=== PATIENT | female | born 1930 | race Caucasian/White ===

== ENCOUNTER 2017-04-22 15:09 | Inpatient (IN) ==
[2017-04-24] MEDS ORDERED: Nitroglycerin 0.4 MG TAB.SUBL SL PRN (22:42)
[2017-04-25 05:16] LABS: Basophils % 0.2 %; Eosinophils % 0.3 %; Hematocrit 23.9 % (35.3-44.9); Hemoglobin 7.8 g/dL (11.5-15.4); Immature Granulocytes % 1.4 % (0-4); Lymphocytes # 0.5 K/mcL (0.6-4.6); Lymphocytes % 7.5 %; Mean Corpuscular HGB Conc 32.6 g/dL (31.6-35.5); Mean Corpuscular Hemoglobin 30.6 pg (28.0-33.3); Mean Corpuscular Volume 93.7 fL (83.0-100.0); Mean Platelet Volume 9.2 fL (9.4-12.4); Monocytes # 0.6 K/mcL (0.0-1.3); Monocytes % 9.2 %; Neutrophils # 5.3 K/mcL (1.6-8.9); Platelet Count 160 K/mcL (140-400); Red Blood Count 2.55 M/mcL (3.82-4.97); Red Cell Distribution Width 17.3 % (11.5-14.5); Segmented Neutrophils % 81.4 %
[2017-04-25 05:24] LABS: INR 1.4
[2017-04-25 05:26] LABS: Activated Partial Thrombo Time 25.4 Seconds (26.0-36.0)
[2017-04-25 05:32] LABS: Platelet Estimate Normal (Normal)
[2017-04-25 05:33] LABS: BUN/Creatinine Ratio 20 (6-26); Blood Urea Nitrogen 18 mg/dL (7-20); Calcium 11.1 mg/dL (8.6-10.8); Carbon Dioxide 28 mEq/L (19-29); Chloride 96 mEq/L (98-109); Glucose 87 mg/dL (70-99); Osmolality,Calculated 265 (280-300); Potassium 3.5 mEq/L (3.5-4.5); Sodium 127 mEq/L (136-145); eGFR For African Americans > 60 (> 60); eGFR For Non-African Americans 59 (> 60)
[2017-04-25] MEDS: Iron Polysaccharide Complex 150 MG CAPSULE PO SCH (07:57)
[2017-04-25] MEDS: Diltiazem CD (24hr) 120 MG CAPSULE PO SCH (07:58)
[2017-04-25] MEDS: CALCIUM VITAMIN D PO SCH ×2 (07:59→19:55)
--- NOTE | 2017-04-25 17:25 | Internal Med History&Physical ---
Date of Encounter: 04/25/17 Time of Encounter: 17:23 Assessment and Plan (1) Physical deconditioning Current visit: Yes Status: Acute Patient's here for PT OT TR. (2) Bladder CA in situ Current visit: Yes Status: Acute She had fairly recent surgery for removal of cancerous tumor in the bladder. Apparently when she had some blood in the urine he went back the cystoscope and found the bubble of an area. But her lighting specialist declined to permit surgery at this time. (3) Atrial fibrillation Current visit: Yes Status: Acute She is not running away with the rate but she does have irregular heartbeat at rest Qualifiers: Qualified Code(s): I48.91 - Unspecified atrial fibrillation (4) HTN (hypertension) Current visit: Yes Status: Acute O follow the blood pressure. Internal Medicine - H&P: HPI Chief complaint: Patient has undergone a number of medical problems recently. She was diagn Admitted From: Hospital to Hospital Transfer Plans for Post Hospital Care: Home History of present illness: Ms. Toth is a 86 year old female Past Med Surg Social Fam HX - Past Medical History Medical history: atrial fibrillation, cancer, GERD, hyperlipidemia, hypertension - Past Surgical History Surgical History: appendectomy, cancer surgery, cataract - Social History Smoking Status: Never smoker Smokeless Tobacco Status: No Alcohol use: none Drug use: none - Family History Son Living Status: Hx Family Cardiac Disorders: Yes Hx Family Cancer: Yes Internal Medicine - H&P: Meds 3 Allergy/AdvReac Type Severity Reaction Status Date / Time Sulfa (Sulfonamide AdvReac Rash Verified 04/24/17 22:29 Antibiotics) All Systems PM: A 10-system review of systems was performed and is negative for pertinent findings except as documented above in the HPI. - Constitutional Constitutional: anorexia, fatigue, no chills, no excessive sweating, no fever(s) , no falls, no lethargy, no malaise, no night sweats, no weakness, no weight gain, no weight loss - EENT Eyes: blurry vision, change in vision, decreased night vision, no diplopia, no discharge, no dry eye, no floaters, no irritation, no itchy eyes, no loss of peripheral vision, no loss of vision, no pain, no photophobia, no seeing flashes , no spots in vision, no tunnel vision, no other visual disturbances Ears: decreased hearing, ear discharge, ear pain, tinnitus Nose, mouth and throat: as per HPI, no bleeding gums, no change in voice, no dental pain, no dry mouth, no dysphagia, no epistaxis, no facial pain, no hoarseness, no lip swelling, no mouth lesions, no mouth pain, no nasal congestion, no nasal discharge, no nasal obstruction, no neck mass, no neck pain , no nose pain, no odynophagia, no post-nasal drip, no sinus pain, no sinus pressure, no sore throat, no throat swelling, no tongue swelling - Cardiovascular Cardiovascular ROS IM: irregular heart rhythm, no chest pain, no claudication, no diaphoresis, no dyspnea, no dyspnea on exertion, no edema, no lightheadedness , no orthopnea, no palpitations, no paroxysmal nocturnal dyspnea, no syncope - Respiratory Respiratory: no cough, no dyspnea, no hemoptysis, no dyspnea on exertion, no wheezing, no snoring, no stridor, no pain on inspiration, no chest congestion, no excessive phlegm production, no change in phlegm color, no pain with cough - Gastrointestinal Gastrointestinal: no abdominal pain, no belching, no bloating, no change in bowel habits, no change in stool character, no coffee ground emesis, no constipation, no cramping, no diarrhea, no dyspepsia, no dysphagia, no early satiety, no excessive flatus, no fecal incontinence, no heartburn, no hematemesis, no hematochezia, no loose stools, no melena, no nausea, no odynophagia, no tenesmus, no vomiting - Genitourinary Genitourinary: other, no amenorrhea, no breast change in shape, no breast mass, no breast pain, no breast skin changes, no breast swelling, no change in libido , no change in urinary stream, no difficulty conceiving, no difficulty urinating , no difficulty voiding, no dysmenorrhea, no dyspareunia, no dysuria, no flank pain, no genital lesions, no genital pruritis (Not applicable), no hematuria, no hot flashes, no light periods, no menorrhagia, no metrorrhagia, no nipple discharge, no nocturia, no pelvic pain, no post void dribbling, no prolapse symptoms, no sexual dysfunction, no urinary frequency, no urinary incontinence, no urinary urgency, no vaginal discharge, no vaginal dryness, no vaginal odor, no vaginal pruritis Additional comments: H&N bladder CA Additional comments: Not applicable - Musculoskeletal Musculoskeletal ROS IM: no arthralgias, no atrophy, no joint swelling, no limited range of motion, no muscle cramps, no myalgias, no neck pain, no numbness, no stiffness, no tingling - Integumentary Integumentary IM: no pruritus, no unusual bruising - Neurological Neurological ROS: no abnormal gait, no abnormal hearing, no abnormal movements, no abnormal speech, no behavioral changes, no burning sensations, no confusion, no convulsions, no disequilibrium, no dizziness, no focal weakness, no frequent falls, no headache(s), no lack of coordination, no loss of vision, no memory loss, no numbness, no paresthesias, no radicular pain, no restless legs, no tingling, no tremor(s), no vertigo, no weakness, no other visual disturbances - Psychiatric Psychiatric: no abnormal sleep pattern, no anhedonia, no anxiety, no auditory hallucinations, no confusion, no depression, no difficulty concentrating, no hallucinations, no homicidal ideation, no mood swings, no panic attacks, no paranoia, no suicidal ideation, no visual hallucinations - Endocrine Endocrine IM: no cold intolerance, no deeping of the voice, no excessive sweating, no fatigue, no flushing, no heat intolerance, no polydipsia, no polyphagia, no polyuria - Hematologic/Lymphatic Hematologic/Lymphatic: other, no easy bruising, no lymphadenopathy - Constitutional Vitals: Temp Pulse Resp BP Pulse Ox 98.0 F 81 16 110/72 94 04/25/17 12:00 04/25/17 12:00 04/25/17 12:00 04/25/17 12:04/25/17 07:33 General appearance: Present: cooperative, A&O X 2, pleasant, answers questions appropriately - Head Head exam: Present: atraumatic, normal inspection, normocephalic - Neck Neck exam general surgery: Present: supple, trachea midline. Absent: lymphadenopathy - Respiratory Respiratory exam: Present: CTAB. Absent: accessory muscle use, rales, rhonchi, wheezes - Cardiovascular Cardiovascular exam: Present: irregular rhythm, RRR, +S1, +S2. Absent: diastolic murmur, gallop, rubs, systolic murmur - GI/Abdominal GI/Abdominal exam: Present: normal bowel sounds, soft, no peritoneal signs. Absent: distended, tenderness Internal Med - H&P Results - Labs CBC & Chem 7: 04/25/17 05:05 04/25/17 05:05 Labs: Short CBC 04/25/17 Range/Units 05:05 WBC 6.5 (4.3-11.1) K/mcL Hgb 7.8 L (11.5-15.4) g/dL Hct 23.9 L (35.3-44.9) % Plt Count 160 (140-400) K/mcL Neutrophils # 5.3 (1.6-8.9) K/mcL BMP 04/25/17 05:05 Sodium 127 L Potassium 3.5 Chloride 96 L Carbon Dioxide 28 BUN 18 Creatinine 0.91 Glucose 87 Calcium 11.1 H Hemoglobin is 7.8 and we will type and cross and give her 1 unit and follow - VTE Documentation of Mechanical Device: Graduated compression elastic hosiery
[2017-04-25] MEDS ORDERED: 0.9 % Sodium Chloride 250 ML ONE (22:08)
[2017-04-26 05:55] LABS: Hematocrit 26.1 % (35.3-44.9); Hemoglobin 8.9 g/dL (11.5-15.4)
[2017-04-26] MEDS: CALCIUM VITAMIN D PO SCH ×2 (10:04→21:47)
[2017-04-26] MEDS: Diltiazem CD (24hr) 120 MG CAPSULE PO SCH (10:04)
[2017-04-26] MEDS: Iron Polysaccharide Complex 150 MG CAPSULE PO SCH (10:04)
--- NOTE | 2017-04-26 13:28 | Internal Med Progress Note ---
Date of Encounter: 04/26/17 Time of Encounter: 13:23 - Assessment and plan (1) Depression Current Visit: Yes Status: Acute Assessment and plan: -commplicated grief now active depression. Decreased sleep and decreased appetite - Not suicidal, but has passive thoughts - Appropriate for remron for now to increase sleep and appetite at low dose - She might benefit from zoloft at low dose in the comming future - Would anticipate that she would require longer than 4 wks to anticipate change in mood Qualifiers: Depression Type: major depressive disorder Major depression recurrence: single episode Active/Remission status: currently active Major depression episode severity: moderate Qualified Code(s): F32.1 - Major depressive disorder, single episode, moderate (2) Constipation Current Visit: Yes Status: Chronic Assessment and plan: - decreased intake, difficult to know if she is trully constipatied - hold off on stool sofetner due to their affect on appetite - Would restart if no BM in 2-3 days Qualifiers: Constipation type: slow transit constipation Qualified Code(s): K59.01 - Slow transit constipation (3) Hyponatremia Current Visit: Yes Status: Acute Assessment and plan: - unknown etiology, will start workup with TSH added to prior blood work - Might by associated with hypervolemic status in the setting of CHF, given strong history of A. fib - Last echo performed not in records, but cardiology suggested cath (4) Insomnia Current Visit: Yes Status: Acute Assessment and plan: - Mirtapine/Remron at low dose to help with sleep - Discussed with family to bring items from home - Discussed that we will attempt to hold off on vitals tell later in the day - Discussed to allow her to sleep uninturrupted tell 8:30am (5) Physical deconditioning Current Visit: Yes Status: Acute Assessment and plan: - PT/OT - Optimize Mood disorder and nutrition (6) Bladder CA in situ Current Visit: Yes Status: Acute Assessment and plan: - Continue to lose blood, but stable Hgb - No optimized for surgical intervention per her interventionist - To follow up out patient (7) Atrial fibrillation Current Visit: Yes Status: Chronic Assessment and plan: - Stable - Continue home medications Qualifiers: Atrial fibrillation type: persistent Qualified Code(s): I48.1 - Persistent atrial fibrillation (8) HTN (hypertension) Current Visit: Yes Status: Acute Assessment and plan: - Stable, continue home meds Qualifiers: Hypertension type: essential hypertension Qualified Code(s): I10 - Essential (primary) hypertension - Time Spent With Patient 25 - 35 minutes (Complete discussion about a new diagnosis of depression was carried today) - Subjective Interval history: Patient with family today. Eating lunch and has expressed decreased appetite. Family reports that she has been feeling this was for the past 2 months and has been losing weight. Reports of grief for the past 2 years now since the time she lost her brother. Sleep is affected as well as decreased appetite. NO prior history of depression diagnosed She also feel fatigued, and has been transfused 2 units. s/p AVM and bladder Ca She continue to have hematurea and was not optimized to undergo surgical evaluation of her bladder Her interventionist informed family that after the echo, she needs cath, but her anemia was contraindication - Constitutional Vitals: Temp Pulse Resp BP Pulse Ox 98.6 F 98 16 114/65 97 04/26/17 12:00 04/26/17 12:00 04/26/17 12:00 04/26/17 12:00 04/26/17 12:00 General appearance: Present: cooperative, A&O X 3, pleasant, answers questions appropriately - Head Head exam: Present: normal inspection - Neck Neck exam general surgery: Present: full ROM, normal inspection, trachea midline. Absent: lymphadenopathy, tenderness, nuchal rigidity - Expanded Neck Exam Neck exam: Absent: anterior neck swelling, midline deformity, thyroid mass - Respiratory Respiratory exam: Present: CTAB. Absent: accessory muscle use, chest wall tenderness, prolonged expiratory phase, rales, respiratory distress, rhonchi, wheezes, tachypnea - Cardiovascular Cardiovascular exam: Present: irregular rhythm, +S1, +S2, tachycardia. Absent: diastolic murmur, RRR, rubs, systolic murmur - GI/Abdominal GI/Abdominal exam: Present: soft. Absent: bruit, distended, firm, mass, rebound , rigid, tenderness - Extremities Exam Extremities exam: Present: normal inspection, pedal edema, warm. Absent: calf tenderness, joint swelling, tenderness - Expanded Upper Extremities Exam General: Present: normal inspection Shoulder exam: Present: full ROM, normal inspection Upper Arm exam: Present: normal inspection Elbow exam: Present: full ROM, normal inspection. Absent: tenderness - Expanded Lower Extremities Exam Hip exam: Present: full ROM Lower Leg exam: Present: full ROM, normal inspection, swelling. Absent: deformity, dislocation Ankle exam: Present: full ROM, swelling. Absent: tenderness Neuro vascular tendon exam: Absent: foot drop, motor deficit, pallor, pulse deficit, sensory deficit - Neurological Exam Neurological exam: Absent: no focal deficits, pronater drift, speech deficit - Expanded Neurological Exam Neurological exam expanded: Absent: ataxia, expressive aphasia, memory loss- recent event, memory loss-remote event, tremor Speech: Absent: anomia - Psychiatric Psychiatric exam: Present: depressed, flat affect Additional comments: Passive suicidal ideation, doesn't express suicide nor a plan Internal Medicine: Result - Labs CBC & Chem 7: 04/26/17 05:20 04/25/17 05:05 Labs: Short CBC 04/26/17 Range/Units 05:20 Hgb 8.9 L (11.5-15.4) g/dL Hct 26.1 L (35.3-44.9) % - ABG Interpretation ABG results: PT/INR, D-dimer PT 15.0 Seconds (9.4-12.1) H 04/25/17 05:05 - VTE Documentation of Mechanical Device: Graduated compression elastic hosiery Consult Discharge Plan - Plan Referrals: Fela Ramon MD [Primary Care Provider] -
[2017-04-26] MEDS ORDERED: Mirtazapine 15 MG TABLET PO SCH (21:00)
[2017-04-26] MEDS: Mirtazapine 15 MG TABLET PO SCH (21:45)
[2017-04-27] MEDS: CALCIUM VITAMIN D PO SCH ×2 (09:17→21:21)
[2017-04-27] MEDS: Diltiazem CD (24hr) 120 MG CAPSULE PO SCH (09:17)
--- NOTE | 2017-04-27 14:25 | Internal Med Progress Note ---
Date of Encounter: 04/27/17 Time of Encounter: 14:23 - Assessment and plan (1) Depression Current Visit: Yes Status: Acute Assessment and plan: -commplicated grief now active depression. Decreased sleep and decreased appetite - Not suicidal, but has passive thoughts - Appropriate for remron for now to increase sleep and appetite at low dose - She might benefit from zoloft at low dose in the coming future - Would anticipate that she would require longer than 4 wks to anticipate change in mood or going into partial remission Qualifiers: Depression Type: major depressive disorder Major depression recurrence: single episode Active/Remission status: currently active Major depression episode severity: moderate Qualified Code(s): F32.1 - Major depressive disorder, single episode, moderate (2) Constipation Current Visit: Yes Status: Chronic Assessment and plan: - decreased intake, difficult to know if she is trully constipatied - continue to hold off on stool softener due to their affect on appetite - Would restart if no BM in 2-3 days Qualifiers: Constipation type: slow transit constipation Qualified Code(s): K59.01 - Slow transit constipation (3) Hyponatremia Current Visit: Yes Status: Acute Assessment and plan: - unknown etiology - Pending TSH - Might by associated with hypervolemic status in the setting of CHF, given strong history of A. fib - Last echo performed not in records, but cardiology suggested cath to her at one point (4) Insomnia Current Visit: Yes Status: Acute Assessment and plan: - Mirtapine at low dose to help with sleep, it is more effective for those two issues at 7.5mg dose - Discussed with family to bring items from home - Discussed that we will attempt to hold off on vitals tell later in the day Qualifiers: Insomnia type: unspecified Qualified Code(s): G47.00 - Insomnia, unspecified (5) Physical deconditioning Current Visit: Yes Status: Acute Assessment and plan: - PT/OT - Optimize Mood disorder and nutrition (6) Bladder CA in situ Current Visit: Yes Status: Acute Assessment and plan: - Continue to lose blood, but stable Hgb - No optimized for surgical intervention per her risk assessor - To follow up out patient (7) Atrial fibrillation Current Visit: Yes Status: Chronic Assessment and plan: - Stable - Continue home medications Qualifiers: Atrial fibrillation type: persistent Qualified Code(s): I48.1 - Persistent atrial fibrillation (8) HTN (hypertension) Current Visit: Yes Status: Acute Assessment and plan: - Stable, continue home meds Qualifiers: Hypertension type: essential hypertension Qualified Code(s): I10 - Essential (primary) hypertension - Time Spent With Patient 25 - 35 minutes - Subjective Interval history: Patient laying in bed with family around. Still feels down and depressed today. Didn't sleep well as reported and has tolerated the remron that was started for her yesterday. She is feeling somewhat better that there are more pictures from home in her room now but expressed that her sleep is suffering that she can't continue to be alseep due to kids waking her up. Overall, no changes, she is to restart rehab tomorrow - Constitutional Vitals: Temp Pulse Resp BP Pulse Ox 98.5 F 96 16 114/72 95 04/27/17 07:09 04/27/17 07:09 04/27/17 07:09 04/27/17 07:09 04/27/17 07:09 General appearance: Present: cooperative, A&O X 3, pleasant, answers questions appropriately - Head Head exam: Present: atraumatic, normocephalic - Eye Eye exam: Present: PERRL, conjuntiva pink, sclera anicteric Pupils: Present: PERRL - Neck Neck exam general surgery: Present: supple, trachea midline. Absent: lymphadenopathy - Respiratory Respiratory exam: Present: CTAB. Absent: accessory muscle use, rales, rhonchi, wheezes - Cardiovascular Cardiovascular exam: Present: RRR, +S1, +S2. Absent: diastolic murmur, gallop, rubs, systolic murmur - GI/Abdominal GI/Abdominal exam: Present: normal bowel sounds, soft, no peritoneal signs. Absent: distended, tenderness - Extremities Exam Extremities exam: Present: warm, radial pulses palpable and symmetrical. Absent : calf tenderness, cyanotic, pedal edema - Neurological Exam Neurological exam: Present: CN II-XII intact, oriented X3, no focal deficits. Absent: pronater drift, facial droop, speech deficit - Psychiatric Psychiatric exam: Present: depressed - Skin Skin exam: Present: dry, intact Internal Medicine: Result - Labs CBC & Chem 7: 04/26/17 05:20 04/25/17 05:05 - ABG Interpretation ABG results: PT/INR, D-dimer PT 15.0 Seconds (9.4-12.1) H 04/25/17 05:05 - VTE Documentation of Mechanical Device: Graduated compression elastic hosiery Consult Discharge Plan - Plan Referrals: Fela Ramon MD [Primary Care Provider] -
[2017-04-27] MEDS: Mirtazapine 15 MG TABLET PO SCH (21:18)
[2017-04-28 08:27] LABS: Hematocrit 31.7 % (35.3-44.9); Hemoglobin 10.5 g/dL (11.5-15.4); Mean Corpuscular HGB Conc 33.1 g/dL (31.6-35.5); Mean Corpuscular Hemoglobin 30.6 pg (28.0-33.3); Mean Corpuscular Volume 92.4 fL (83.0-100.0); Mean Platelet Volume 9.3 fL (9.4-12.4); Platelet Count 177 K/mcL (140-400); Red Blood Count 3.43 M/mcL (3.82-4.97); Red Cell Distribution Width 16.5 % (11.5-14.5)
[2017-04-28] MEDS: Diltiazem CD (24hr) 120 MG CAPSULE PO SCH (08:27)
[2017-04-28] MEDS: CALCIUM VITAMIN D PO SCH ×2 (08:30→20:31)
[2017-04-28 09:00] LABS: BUN/Creatinine Ratio 18 (6-26); Blood Urea Nitrogen 18 mg/dL (7-20); Calcium 11.9 mg/dL (8.6-10.8); Carbon Dioxide 23 mEq/L (19-29); Chloride 93 mEq/L (98-109); Glucose 83 mg/dL (70-99); Osmolality,Calculated 263 (280-300); Potassium 3.6 mEq/L (3.5-4.5); Sodium 126 mEq/L (136-145); eGFR For African Americans > 60 (> 60); eGFR For Non-African Americans 53 (> 60)
--- NOTE | 2017-04-28 16:30 | Internal Med Progress Note ---
Date of Encounter: 04/28/17 Time of Encounter: 16:28 - Assessment and plan (1) Physical deconditioning Current Visit: Yes Status: Acute Assessment and plan: Patient is seeing PT OT TR. (2) Bladder CA in situ Current Visit: Yes Status: Acute Assessment and plan: Await biopsy to see if there is any recurrence of her cancer (3) Atrial fibrillation Current Visit: Yes Status: Chronic Assessment and plan: She does have low atrial fib and we will have to adjust her meds. Qualifiers: Atrial fibrillation type: persistent Qualified Code(s): I48.1 - Persistent atrial fibrillation (4) HTN (hypertension) Current Visit: Yes Status: Acute Assessment and plan: The pressure is well controlled Qualifiers: Hypertension type: essential hypertension Qualified Code(s): I10 - Essential (primary) hypertension - Time Spent With Patient less than 15 minutes - Subjective Interval history: Patient has complaints in the [facility] follow-up on her biopsy report. - Constitutional Vitals: Temp Pulse Resp BP Pulse Ox 97.8 F 113 18 118/72 94 04/28/17 09:12 04/28/17 09:12 04/28/17 09:12 04/28/17 09:12 04/28/17 09:12 General appearance: Present: cooperative, A&O X 3, pleasant, answers questions appropriately - Head Head exam: Present: atraumatic, normal inspection, normocephalic - Neck Neck exam general surgery: Present: supple, trachea midline. Absent: lymphadenopathy - Respiratory Respiratory exam: Present: CTAB. Absent: accessory muscle use, rales, rhonchi, wheezes - Cardiovascular Cardiovascular exam: Present: RRR, +S1, +S2. Absent: diastolic murmur, gallop, rubs, systolic murmur - GI/Abdominal GI/Abdominal exam: Present: normal bowel sounds, soft, no peritoneal signs. Absent: distended, tenderness Internal Medicine: Result - Labs CBC & Chem 7: 04/28/17 08:20 04/28/17 08:20 Labs: Short CBC 04/28/17 Range/Units 08:20 WBC 9.5 (4.3-11.1) K/mcL Hgb 10.5 L D (11.5-15.4) g/dL Hct 31.7 L (35.3-44.9) % Plt Count 177 (140-400) K/mcL [facility] [place] 04/28/17 08:20 Sodium 126 L Potassium 3.6 Chloride 93 L Carbon Dioxide 23 BUN 18 Creatinine 1.00 Glucose 83 Calcium 11.9 H Patient's hemoglobin was 10.5 and electrolytes are fine except for hyponatremia. Will follow - ABG Interpretation ABG results: PT/INR, D-dimer PT 15.0 Seconds (9.4-12.1) H 04/25/17 05:05 - VTE Documentation of Mechanical Device: Graduated compression elastic hosiery Consult Discharge Plan - Plan Referrals: Fela Ramon MD [Primary Care Provider] -
[2017-04-28] MEDS: Mirtazapine 15 MG TABLET PO SCH (20:30)
[2017-04-29] MEDS: Diltiazem CD (24hr) 120 MG CAPSULE PO SCH (08:45)
[2017-04-29] MEDS: CALCIUM VITAMIN D PO SCH (10:28)
--- NOTE | 2017-04-29 14:22 | Internal Med Progress Note ---
Date of Encounter: 04/29/17 Time of Encounter: 14:21 - Assessment and plan (1) Physical deconditioning Current Visit: Yes Status: Acute (2) Bladder CA in situ Current Visit: Yes Status: Acute (3) Atrial fibrillation Current Visit: Yes Status: Chronic Qualifiers: Atrial fibrillation type: persistent Qualified Code(s): I48.1 - Persistent atrial fibrillation (4) HTN (hypertension) Current Visit: Yes Status: Acute Qualifiers: Hypertension type: essential hypertension Qualified Code(s): I10 - Essential (primary) hypertension - Subjective Interval history: Patient has no complaints in follow-up on her biopsy report. - Constitutional Vitals: Temp Pulse Resp BP Pulse Ox 97.7 F 114 18 109/68 93 04/28/17 21:00 04/28/17 21:00 04/28/17 21:00 04/28/17 21:00 04/28/17 21:00 General appearance: Present: cooperative, A&O X 3, pleasant, answers questions appropriately Internal Medicine: Result - Labs CBC & Chem 7: 04/28/17 08:20 04/28/17 08:20 - ABG Interpretation ABG results: PT/INR, D-dimer PT 15.0 Seconds (9.4-12.1) H 04/25/17 05:05 - VTE Documentation of Mechanical Device: Graduated compression elastic hosiery Consult Discharge Plan - Plan Referrals: Fela Ramon MD [Primary Care Provider] -
[2017-04-29] MEDS: Mirtazapine 15 MG TABLET PO SCH (20:51)
[2017-04-30] MEDS: Diltiazem CD (24hr) 120 MG CAPSULE PO SCH (08:20)
[2017-04-30] MEDS: Cholecalciferol (D-3) 1,000 UNIT TABLET PO SCH (08:20)
--- NOTE | 2017-04-30 11:44 | Psychological Evaluation ---
Date of Encounter: 04/30/17 Time of Encounter: 10:50 History of Present Illness History of present illness: Ms. Toth is a 86 year old female who was admitted for deconditioning. She was recently treated for a cancerous tumor on her bladder. Past Medical History Medical history: PMH includes atrial fibrillation, cancer, GERD, HTN and HCL. There is no reported psychiatric history. Home Medications and Allergies 3 Allergy/AdvReac Type Severity Reaction Status Date / Time Sulfa (Sulfonamide AdvReac Rash Verified 04/24/17 22:29 Antibiotics) Social History - Social History Social History: The patient lives with her daughter. She has great grandchildren living in [place]; ;however, she does not see them often. The patient presents as severely weak and fatigued. The patient reports a recent and very troubling loss of a good friend. Mrs. Toth indicated that she was "just worn out" and has realized that "life. was over for both of us" (indicating her recent loss of her friend). The patient lost a son approximately 2 years ago. Lack of participation in therapy is related to severe physical fatigue as well as severe depression. The patient does not perceive any reasons to continue living. Cognitive/Emotional Assessment - Emotional Status Additional Findings: Mrs. Wood was alert and oriented. She was able to accurately report some recent medical events However, she responded "sadness" as the reason for her admission to [place]. When pressed, she was not able to identify why she was admitted to the rehabilitation facility. Assessment & Plan - Prognosis Prognosis: Poor (The patient is sffereing from severe depression. In additon to physical fatigue, mood dysregulation significantly interefers with her ability to participate in rehabilitation. Mrs. Toth is currently prescribed Remeron; howver, review of medication is strongly suggested. Immediate therapy to treat depresion is also in order. More drastic intervention for depression ( e.g. ECT) might be considered if the patient can tolerate and if not contraindicated by her other medical conditions.) Procedures - Intervention Interventions: Supportive Counseling (Outpatient aggressive therapy for severe depression is strongly recommended.)
[2017-04-30] MEDS: Mirtazapine 15 MG TABLET PO SCH (20:38)
[2017-05-01 05:43] LABS: Hematocrit 26.8 % (35.3-44.9); Hemoglobin 8.9 g/dL (11.5-15.4)
[2017-05-01 07:20] VITALS: BP 106/68
--- NOTE | 2017-05-01 10:37 | Discharge Summary ---
Date of Encounter: 05/01/17 Time of Encounter: 10:35 - Discharge Diagnosis (1) Bladder CA in situ Priority: Primary Status: Acute Comments: Patient continues to have hematuria. Serial labs show hemoglobin stable at time of discharge (2) Depression Priority: Secondary Status: Acute Comments: Patient continues with major depression. [facility] admission patient has refused therapy and at times assistance with ADLs. Patient has requested hospice consult which is in progress. Vision to continue on current medications and recommend follow-up with psychiatry Qualifiers: Depression Type: major depressive disorder Major depression recurrence: single episode Active/Remission status: currently active Major depression episode severity: moderate Qualified Code(s): F32.1 - Major depressive disorder, single episode, moderate (3) Atrial fibrillation Priority: Secondary Status: Chronic Comments: she issues during this hospitalization. Heart rate was maintained irregular blood less than 100. Patient to continue on current medications and follow up with cardiology Qualifiers: Atrial fibrillation type: persistent Qualified Code(s): I48.1 - Persistent atrial fibrillation (4) HTN (hypertension) Priority: Secondary Status: Acute Comments: Vital signs remained stable during hospitalization Qualifiers: Hypertension type: essential hypertension Qualified Code(s): I10 - Essential (primary) hypertension (5) Physical deconditioning Priority: Secondary Status: Chronic Comments: The patient continues with debilitative state. She has been refusing therapy and has had issues with major depression which has complicated her therapy. - Discharge Medications Allergies/Adverse Reactions: 3 Allergy/AdvReac Type Severity Reaction Status Date / Time Sulfa (Sulfonamide AdvReac Rash Verified 04/24/17 22:29 Antibiotics) Date of admission: 04/24/17 21:00 Primary care physician: Fela Ramon, Consults: 04/24/17 22:36 Consult to Occupational Therapy [CONS] Routine Comment: Evaluate, develop and implement POC Reason for Consult: Eval and Treat Consult to Physical Therapy [CONS] Routine Comment: Evaluate, develop and implement POC Reason for Consult: Eval and Treat Consult to Recreational Therapy [CONS] Routine Comment: Evaluate, develop and implement POC Consult to Dental Scheduler [CONS] Routine Reason for SW Consult: Discharge Planning 04/29/17 12:38 Consult to Psychology [CONS] Routine Consulting Provider: Gris Santana Reason for Consult: illness Time Notified: 13:00 Call Completed: No Discharging clinician: Poncho Mckinley Anticipated date of discharge: 05/01/17 - Patient Status Disposition: Transfer SNF Condition: Fair Functional capacity at discharge: wheelchair bound Overall status at discharge: patient is progressing back to baseline - Discharge Instructions Follow Up With: Fela Ramon MD [Primary Care Provider] - - Diet and Activity Activity: increase activity as tolerated Diet: regular diet Hospital course: Ms. Toth is a 86 year old female Patient was admitted for deconditioning secondary to multiple chronic issues. Patient has history of bladder CA and has continued to have hematuria during this admission. Patient's hospital stay and rehabilitation's medical complicated by major depression, during which patient has frequently refused therapy and has refused assistance with ADLs. Patient on multiple occasions as requested hospice consult. Patient was evaluated by psychiatry, who diagnosed her with major depression. Recommendations for continued psychiatry follow-up presented a patient who refused. Patient was started on Remeron during this admission. Further antidepressants have been considered but are recommended to be valuated by her PCP who will be able to follow-up and evaluate the effects. No acute issues noted during this hospitalization. Serial labs done which shows no acute issues and hemoglobin has remained stable. Patient is to be discharged to an ECF and to continue with current hospice consult. - Time Spent with Patient Total time spent providing and/or coordinating discharge services: Less than 30 minutes - Constitutional Vitals: Temp Pulse Resp BP Pulse Ox 97.7 F 97 16 106/68 94 05/01/17 07:19 05/01/17 07:19 05/01/17 07:19 05/01/17 07:19 05/01/17 07:19 General appearance: Present: cooperative, A&O X 3, pleasant, answers questions appropriately - Respiratory Respiratory exam: Present: CTAB. Absent: accessory muscle use, rales, rhonchi, wheezes Additional comments: Diminished breath sounds to bilateral lower walters - Cardiovascular Cardiovascular exam: Present: RRR, +S1, +S2. Absent: diastolic murmur, gallop, rubs, systolic murmur - GI/Abdominal GI/Abdominal exam: Present: normal bowel sounds, soft, no peritoneal signs. Absent: distended, tenderness - Additional comments: Urine output remains frank. Patient with history of hematuria, but no jen blood noted - Neurological Exam Neurological exam: Present: CN II-XII intact, oriented X3, no focal deficits. Absent: pronater drift, facial droop, speech deficit - Psychiatric Psychiatric exam: Present: depressed, flat affect Additional comments: Patient continues with flat affect during interaction. Denies any current needs. Patient very has a negative initiate any conversation and answers most questions with 1-2 word answers.. Patient states that she only wants to be discharged to home. - Skin Skin exam: Present: dry, intact - VTE Documentation of Mechanical Device: Graduated compression elastic hosiery
[2017-05-01] MEDS: Diltiazem CD (24hr) 120 MG CAPSULE PO SCH (12:52)
[2017-05-01] MEDS: Cholecalciferol (D-3) 1,000 UNIT TABLET PO SCH (12:53)
--- NOTE | 2017-05-01 14:14 | Physician Discharge Referral ---
ExtendedCare Referral Info Transfer To: ECF Provider in Charge after Transfer: PCP, Trimming Cutter Institutional Level of Care: Skilled - Diagnosis (1) Physical deconditioning Priority: Primary Status: Chronic (2) Bladder CA in situ Priority: Secondary Status: Acute (3) Atrial fibrillation Priority: Secondary Status: Chronic (4) HTN (hypertension) Priority: Secondary Status: Acute Prognosis: Fair Aware of Diagnosis: Family Aware of Prognosis: Family - Transfer Medications Home Medications: Calcium Carbonate [Tums] 250 mg PO BID 05/01/17 [History] Cholecalciferol (D-3) [Vitamin D] 1,000 units PO DAILY 05/01/17 [History] Diltiazem CD (24hr) [Cardizem CD] 120 mg PO DAILY 05/01/17 [History] Metoprolol [Lopressor] 25 mg PO BID 05/01/17 [History] Mirtazapine [Remeron] 7.5 mg PO HS 05/01/17 [History] Omeprazole [PriLOSEC] 20 mg PO BIDAC 05/01/17 [History] Allergies/Adverse Reactions: 3 Allergy/AdvReac Type Severity Reaction Status Date / Time Sulfa (Sulfonamide AdvReac Rash Verified 04/24/17 22:29 Antibiotics) - Respiratory Orders Smoking Cessation: Smoking cessation has been advised. For more information, call the [place] Tobacco Quit Line at 4-238-HOKRNOW. - Ancillary Orders May use pressure relief devices daily prn, May consult with Dentist, Ux Engineer, Soap Mixer PRN - Advance Directives Code Status: DNR-Arrest - Mobility Orders Ambulate - Rehabiliation Orders Rehab Potential: Poor - Treatments Skin tear care topically daily PRN per policy, May check for fecal impaction rectally daily PRN, Fleet enema rectally every other day PRN cleansing purposes - Diet Orders Regular CERTIFICATION: I certify that the transfer of the above named patient to an Extended Care Facility is necessary for the continuing treatment of the diagnosis listed. The above information is true and accurate reflection of patient's current condition. Confidential - Redisclosure prohibited without a patient's written consent.
== END 2017-05-01 15:42 | DRG 945 ==
LOC: INPGRE 04-24 21:00
PROVIDERS: ADMIT Internal Medicine; ATTEND Internal Medicine